=== PATIENT | male | born 1955 | race Two or more races ===

== ENCOUNTER 2016-12-20 11:29 | Emergency (ER) | payer MEDICAID ==
[~2016-12-20] VITALS: Ht 167.6 cm; Wt 78.0 kg
[~2016-12-20 11:29] MED LIST: BACL-141 PO; KEPP500 PO
[2016-12-20] MEDS ORDERED: SODIUM CHLORIDE 0.9% 1,000 ML IV ONE (12:16)
[2016-12-20] MEDS ORDERED: ONDANSETRON HCL 4MG/2ML VIAL IV STA (12:16)
[2016-12-20] MEDS ORDERED: MORPHINE SULFATE 4 MG/ML CPJ (NOT FOR IM USE) IV STA (12:16)
[2016-12-20] MEDS ORDERED: PANTOPRAZOLE SODIUM 40 MG/VIAL IV STA (12:16)
[2016-12-20 12:48] LABS: BASOPHILS % 0.4 % (0.0-2.0); EOSINOPHILS % 0.2 % (0.0-5.0); HEMATOCRIT. 41.4 % (42.0-52.0); HEMOGLOBIN. 14.9 g/dL (14.0-18.0); LYMPHOCYTES % 12.7 % (20.0-50.0); MEAN CORPUSCULAR VOLUME 92.2 fL (80.0-94.0); MEAN PLATELET VOLUME 8.7 fl (7.4-10.4); MONOCYTES % 7.2 % (2.0-8.0); NEUTROPHILS % 79.5 % (40.0-76.0); PLATELET 89 x1000/uL (130-400)
[2016-12-20 12:56] LABS: INR 1.2; PROTHROMBIN TIME 12.7 sec
[2016-12-20 13:00] LABS: CARBON DIOXIDE 26 mEq/L (21-32); CHLORIDE 101 mEq/L (98-107)
[2016-12-20 13:06] LABS: TROPONIN I < 0.02 ng/mL (0.00-0.04)
[2016-12-20 14:58] LABS: CLARITY URINE CLOUDY (CLEAR); COLOR URINE YELLOW (YELLOW); GLUCOSE URINE NEGATIVE (NEGATIVE); KETONES URINE NEGATIVE (NEGATIVE); LEUKOCYTE ESTERASE URINE NEGATIVE (NEGATIVE); NITRITE URINE NEGATIVE (NEGATIVE); OCCULT BLOOD URINE TRACE (NEGATIVE); PROTEIN URINE NEGATIVE (NEGATIVE); UROBILINOGEN URINE 0.2 E.U./dL (0.2-1.0)
[2016-12-20 17:20] VITALS: BP 117/72
== END 2016-12-20 17:24 | disposition home or self-care (01) ==
LOC: ER 12:06
DX: N39.0 Urinary tract infection, site not specified (principal); R19.7 Diarrhea, unspecified; I67.1 Cerebral aneurysm, nonruptured; K80.20 Calculus of gallbladder without cholecystitis without obstruction; G40.909 Epilepsy, unspecified, not intractable, without status epilepticus; Z86.73 Personal history of transient ischemic attack (TIA), and cerebral infarction without residual deficits
CPT/HCPCS: 36415; 74176; 80053; 81001; 83690; 83880; 84484; 85025; 85610; 93005; 96374; 96375; 99285; C9113; J2270; J2405; J7030; Z7610